=== PATIENT | female | born 1980 | race Hispanic/Latino ===

== ENCOUNTER 2017-06-25 21:06 | Emergency (ER) | payer SELFPAY | END 2017-06-25 22:33 | disposition home or self-care (01) | LOC: ERS 21:06 | DX: S85.811A Laceration of other blood vessels at lower leg level, right leg, initial encounter (principal); S81.811A Laceration without foreign body, right lower leg, initial encounter; E11.9 Type 2 diabetes mellitus without complications; Z79.84 Long term (current) use of oral hypoglycemic drugs; X58.XXXA Exposure to other specified factors, initial encounter | CPT/HCPCS: 99282 ==